=== PATIENT | female | born 1960 ===

== ENCOUNTER 2016-09-26 17:04 | Emergency (ER) | payer MEDICARE ==
--- NOTE | ~2016-09-26 | ER ---
PATIENT'S NAME: GHADA PHELAN [facility] AGE: 56 Y [address] ROOM: [place] [address] LOCATION: [facility] ADMIT DATE: 09/26/2016 ER/Outpatient Report DISCHARGE DATE: 09/26/2016 FAMILY PHYSICIAN: Vicky Pike APRN ATTENDING PHYSICIAN: Paulo Mead Time of Arrival: 1704 hours. Time of Evaluation: 1707 hours. CHIEF COMPLAINT: Injuries from fall. HISTORY OF PRESENT ILLNESS: This is a 56-year-old female who presents to the ER. She states that she tripped at her sister's house on some on uneven sidewalk and fell forward striking her face on the cement. The patient states that her glasses did not break. She is not for sure if she lost any consciousness, but she is having quite a bit of discomfort over her nose and forehead region. She did have bleeding out both nares. She has had no nausea or vomiting. She denies any neck or back pain. No other problems at this time. ALLERGIES: NO KNOWN ALLERGIES. MEDICATIONS: Please see medication list in the nurse's notes. PAST MEDICAL HISTORY: 1. Insulin-dependent diabetes. 2. Hypertension. PAST SURGERIES: Two C-sections and a bilateral carpal tunnel repair. SOCIAL HISTORY: Denies smoking, drug, or alcohol use. REVIEW OF SYSTEMS: CONSTITUTIONAL: Denies any change in weight or fatigue. HEENT: Complaining of facial pain. HEME: No easy bruising or bleeding. SKIN: Has some abrasions noted. MUSCULOSKELETAL: Denies any neck or back pain. PHYSICAL EXAMINATION: PATIENT'S NAME: GHADA PHELAN [facility] AGE: 56 Y [address] ROOM: [place] [address] LOCATION: [facility] ADMIT DATE: 09/26/2016 ER/Outpatient Report DISCHARGE DATE: 09/26/2016 FAMILY PHYSICIAN: Vicky Pike APRN ATTENDING PHYSICIAN: Paulo Mead VITAL SIGNS: Height 5 feet 6 inches, stated; weight 125.7 kilograms, taken; blood pressure is 127/73; pulse 97; respirations 16; temperature 99 degrees tympanically; saturations 93% on room air. Guille Coma score is 15. GENERAL: Alert, calm, well-developed female, in mild distress. HEENT: Head, normocephalic. Eyes; pupils are equal and reactive to light. Ears; TMs display good light reflexes bilaterally. Nose; she has blood in each naris. She does have swelling noted to her nose and quite a bit of tenderness across the bridge of her nose as well. Throat; no exudates erythema. She is able to open and close her jaw without difficulty, and her teeth are in good alignment. LUNGS: Clear to auscultation bilaterally. No wheezes or crackles. HEART: Regular rate and rhythm. MUSCULOSKELETAL: She has no tenderness over her cervical, thoracic, or lumbar spine. LABORATORY DATA AND X-RAYS: Labs, none were done. CT scan of the head and facial bones were done, does show that she has a nasal fracture. IMPRESSION: Nasal fracture from a ground level fall. ASSESSMENT AND PLAN: We did give the patient [place] here in the emergency room for her pain. We will dismiss her to home with a prescription for [place] to use as directed. She needs to ice any sore areas. She should sleep with her head elevated. She may alternate her pain medication if needed with ibuprofen. She should follow up with her primary care physician or ear, nose, throat doctor for followup care, once the nose swelling goes down in her nose. The patient understands and agrees with care. RASHMI MERIDA PA-C FOR MD KUSH MEDEL/gayatri /[id number] d: 09/27/16 0005 t: 10/07/16 0631, OUTPATIENT REPORT
== END 2016-09-26 18:20 | disposition disaster alternative care site (69) ==
LOC: GACC 17:04
DX: S02.2XXA Fracture of nasal bones, initial encounter for closed fracture (principal); I10 Essential (primary) hypertension; E11.9 Type 2 diabetes mellitus without complications; Z98.890 Other specified postprocedural states; Z79.899 Other long term (current) drug therapy; W18.09XA Striking against other object with subsequent fall, initial encounter; Y92.480 Sidewalk as the place of occurrence of the external cause